=== PATIENT | female | born 1995 | race Caucasian/White ===

== ENCOUNTER → 2025-05-27 14:32 | Outpatient (REF) | payer BC, SELFPAY | LOC: PNTC 14:32 | PROVIDERS: ATTENDING PHYSICIAN Registered Nurse Women's Health Care, Ambulatory | DX: Z34.92 Encounter for supervision of normal pregnancy, unspecified, second trimester (principal); Z36.3 Encounter for antenatal screening for malformations; Z36.86 Encounter for antenatal screening for cervical length | CPT/HCPCS: 76805; 76817 ==